=== PATIENT | female | born 1950 | race Caucasian/White ===

== ENCOUNTER 2023-05-28 14:22 | Emergency (ER) | payer OTHER, SELFPAY ==
--- NOTE | 2023-05-28 14:27 | ED.SKABFB ---
HPI - Skin/Abscess/Foreign Bdy General Chief complaint: Skin/Abscess/Foreign Body Stated complaint: RASH ON FACE Source: patient and RN notes reviewed History of Present Illness HPI narrative: 72 yo F presents to urgent care with complaints of an itchy rash to her face x 2 weeks. Pt states it started when she was staying in a hotel room and it started out the size of a quarter. The rash has grew in size and pt is concerned about it getting into her left eye. Denies any visual disturbance, eye pain, fevers, chills, chest pain, SOB, or vomiting. Pt has tried hydrocortisone cream, Benadryl, and another analgesic benadryl cream with moderate relief. Related Data Home Medications Medication Instructions Recorded Confirmed atorvastatin 10 mg tablet 10 mg PO HS 05/28/23 05/28/23 Allergies Allergy/AdvReac Type Severity Reaction Status Date / Time moxifloxacin [From Avelox] Allergy Difficulty Verified 05/28/23 14:44 Swallowing Review of Systems Review of Systems: CONSTITUTIONAL: Denies fever, chills, or sweats. EYES: Denies visual changes, redness, or discharge. ENT: Denies otalgia and sore throat CARDIOVASCULAR: Denies chest pain, palpitations, or edema. RESPIRATORY: Denies cough or dyspnea. GASTROINTESTINAL: Denies abdominal pain, nausea, vomiting, or diarrhea. GENITOURINARY: Denies dysuria or hematuria. SKIN: rash to face MUSCULOSKELETAL: Denies back pain, joint pain, or myalgia. NEUROLOGIC: Denies headache, numbness, or weakness. Pertinent positives per HPI. PMFSH Comments At the time of my signature, I reviewed and agree with the nursing past medical, surgical, social, and family history. There is no relevant family history pertinent to the patient complaint. Exam Narrative: GENERAL: This is a well-nourished, well-developed patient, in no apparent distress. HEAD: normocephalic, atraumatic. EYES: Sclera clear/white. Vision is grossly intact. EARS: External ears normal, auditory canals clear and without drainage, TMs normal without perforation. Hearing grossly intact. NOSE: External nose normal with no obvious nasal discharge, nares without redness, no rhinorrhea. THROAT: Mucous membranes moist, posterior pharynx clear. NECK: Neck supple, non-tender without lymphadenopathy, masses or thyromegaly. CARDIOVASCULAR: Regular rate RESPIRATORY: No respiratory distress SKIN: erythremic patches to left lateral orbital area extending to lateral forehead. Few erythremic papules to frontal forehead NEURO: awake, alert, and oriented to person, place and time. There were no obvious focal neurologic abnormalities. EXTREMITIES: No clubbing, cyanosis, or edema. No joint tenderness, effusion, or edema noted. BACK: Nontender without deformity or crepitus. No flank tenderness. Course Course Level of Care: Express Care Visit Vital Signs Vital signs: Vital Signs Temperature 99.1 F 05/28/23 14:39 Pulse Rate 91 05/28/23 14:39 Respiratory Rate 16 05/28/23 14:39 Blood Pressure 123/88 05/28/23 14:39 Pulse Oximetry 97 05/28/23 14:39 Temperature 99.1 F 05/28/23 14:39 Pulse Rate 91 05/28/23 14:39 Respiratory Rate 16 05/28/23 14:39 Blood Pressure 123/88 05/28/23 14:39 Pulse Oximetry 97 05/28/23 14:39 reviewed MDM - Skin/Abscess/Foreign Bdy MDM Narrative Medical decision making narrative: Take the steroids as directed. may continue the topical Benadryl at home. If you develop and new or worsening symptoms, you need to go to the ER. Differential Diagnosis Differential diagnosis: Likely urticaria, herpes zoster, allergic reaction to drug, cellulitis, insect bites, impetigo, contact dermatitis and other (periorbital cellulitis) Critical Care Time Critical Care Time Critical Care Time: No Discharge Plan Discharge Clinical Impression: Contact dermatitis Qualifiers: Contact dermatitis type: unspecified Contact dermatitis trigger: unspecified trigger Qualified Code(s): L25.9
[2023-05-28 14:39] VITALS: BP 123/88; PULSE 91; RESP 16; TEMP 37.3; O2SAT 97
== END 2023-05-28 15:00 | disposition home or self-care (01) ==
PROVIDERS: Emergency Provider Nurse Practitioner Family; PCP Family Medicine
DX: L25.9 Unspecified contact dermatitis, unspecified cause (principal); E78.00 Pure hypercholesterolemia, unspecified
CPT/HCPCS: 99213; G0463